=== PATIENT | male | born 1970 | race Caucasian/White ===

== ENCOUNTER 2023-01-05 20:38 | Inpatient (IN) | payer OTHER ==
[2023-01-05 20:42] VITALS: BMI 23.3
[2023-01-05] MEDS ORDERED: ACETAMINOPHEN 1000 MG/100 ML BAG IVPB ONE (22:36)
[2023-01-05] MEDS ORDERED: ACETAMINOPHEN INJECTION 100 ML IVPB ONE (22:48)
[2023-01-05 23:07] LABS: BASO % 0.6 % (0-2.0); EOS % 0.2 % (0-4.5); HEMATOCRIT 44.2 % (35.4-49); HEMOGLOBIN 15.1 GM/dL (11.7-16.9); LYMPH % 26.7 % (8-40); MCH 28.9 pg (25.7-33.7); MCHC 34.2 g/dl (32.0-35.9); MEAN CELL VOLUME 84.6 fl (80-96); MEAN PLT VOLUME 8.3 fl (7.5-11.1); MONO % 6.4 % (3.8-10.2); NEUT % 66.1 % (42.8-82.8); PLATELET COUNT 341 10^3/uL (134-434); RBC 5.22 M/mm3 (4.00-5.60); RDW 14.1 % (11.9-15.9); WHITE BLOOD COUNT 12.8 K/mm3 (4.0-10.0)
[2023-01-05 23:13] LABS: INR 1.23 (0.83-1.09); PROTHROMBIN TIME (PATIENT) 14.2 SEC (9.7-13.0)
[2023-01-05 23:16] LABS: ACTIVATED PTT 38.8 SECONDS (25.2-36.5)
[2023-01-05 23:35] LABS: POTASSIUM 4.8 mmol/L (3.5-5.1)
[2023-01-05 23:38] LABS: ALBUMIN 3.9 g/dl (3.4-5.0); CALCIUM 9.5 mg/dL (8.5-10.1)
[2023-01-05 23:41] LABS: CREATININE 1.3 mg/dL (0.55-1.3)
[2023-01-05 23:42] LABS: BILIRUBIN,TOTAL 0.7 mg/dL (0.2-1); TOT PROT 8.8 g/dl (6.4-8.2)
[2023-01-06 03:25] LABS: EPI CELLS 12 /uL (0-25.1); HYALINE CASTS 11 /uL (0-3.1); PH,URINE 5.5 (5.0-8.0); URINE APPEARANCE CLEAR; URINE BACTERIA 3 /uL (0-1359); URINE BILIRUBIN 2+ (NEGATIVE); URINE COLOR DK YELLOW; URINE GLUCOSE (UA) NEGATIVE (NEGATIVE); URINE KETONE 1+ (NEGATIVE); URINE LEUK ESTERASE NEGATIVE (NEGATIVE); URINE NITRITE NEGATIVE (NEGATIVE); URINE PROTEIN 1+ (NEGATIVE); URINE RBC 13 /uL (0-23.9); URINE WBC 20 /uL (0-25.8)
[2023-01-06 08:10] LABS: HEMATOCRIT 42.7 % (35.4-49); HEMOGLOBIN 14.2 GM/dL (11.7-16.9); MCH 28.9 pg (25.7-33.7); MCHC 33.2 g/dl (32.0-35.9); MEAN PLT VOLUME 8.1 fl (7.5-11.1); PLATELET COUNT 299 10^3/uL (134-434); RBC 4.91 M/mm3 (4.00-5.60); RDW 13.9 % (11.9-15.9); WHITE BLOOD COUNT 7.1 K/mm3 (4.0-10.0)
[2023-01-06 08:26] LABS: POTASSIUM 4.3 mmol/L (3.5-5.1)
[2023-01-06 08:28] LABS: CALCIUM 9.3 mg/dL (8.5-10.1)
[2023-01-06 08:29] LABS: ALBUMIN 3.7 g/dl (3.4-5.0); BLOOD UREA NITROGEN 25.6 mg/dL (7-18); MAGNESIUM 2.6 mg/dL (1.8-2.4)
[2023-01-06 08:32] LABS: PHOSPHOROUS 3.9 mg/dL (2.5-4.9)
[2023-01-06 08:33] LABS: BILIRUBIN,TOTAL 0.8 mg/dL (0.2-1)
[2023-01-06 08:34] LABS: TOT PROT 8.2 g/dl (6.4-8.2)
[2023-01-06] MEDS: ENOXAPARIN NA (PORCINE) 40 MG/0.4 ML DISP.SYRIN SQ SCH (09:05)
[2023-01-06] MEDS ORDERED: ATORVASTATIN CA 80 MG TABLET (FP) ONE (22:18)
[2023-01-06] MEDS: ATORVASTATIN CA 80 MG TABLET (FP) PO SCH ×2 (22:23→22:50)
[2023-01-07 08:49] LABS: BASO % 0.4 % (0-2.0); EOS % 0.9 % (0-4.5); HEMATOCRIT 46.3 % (35.4-49); HEMOGLOBIN 15.2 GM/dL (11.7-16.9); MCH 28.5 pg (25.7-33.7); MCHC 32.8 g/dl (32.0-35.9); MEAN CELL VOLUME 86.9 fl (80-96); MEAN PLT VOLUME 8.3 fl (7.5-11.1); MONO % 6.6 % (3.8-10.2); NEUT % 58.1 % (42.8-82.8); PLATELET COUNT 317 10^3/uL (134-434); RBC 5.33 M/mm3 (4.00-5.60); WHITE BLOOD COUNT 9.8 K/mm3 (4.0-10.0)
[2023-01-07 09:12] LABS: POTASSIUM 4.7 mmol/L (3.5-5.1)
[2023-01-07 09:15] LABS: ALBUMIN 3.8 g/dl (3.4-5.0); BLOOD UREA NITROGEN 31.7 mg/dL (7-18); CALCIUM 9.4 mg/dL (8.5-10.1)
[2023-01-07 09:20] LABS: BILIRUBIN,TOTAL 1.1 mg/dL (0.2-1); TOT PROT 8.7 g/dl (6.4-8.2)
[2023-01-07 09:21] LABS: CHOLESTEROL 198 mg/dL (50-200); LDL CHOLESTEROL (ONLY SJRH) 142 mg/dL (5-100)
[2023-01-07 09:23] LABS: HDL CHOLESTEROL 41 mg/dL (40-60)
[2023-01-07] MEDS: ENOXAPARIN NA (PORCINE) 40 MG/0.4 ML DISP.SYRIN SQ SCH (10:12)
[2023-01-07] MEDS: ASPIRIN COATED 81 MG TABLET.EC PO SCH (10:12)
[2023-01-07] MEDS ORDERED: FLU VACCINE (FLULAVAL) PF 60 MCG/0.5 ML SYRINGE 2023-2024 IM ONE (12:00)
[2023-01-07] MEDS: ATORVASTATIN CA 80 MG TABLET (FP) PO SCH (21:46)
[2023-01-08 08:16] LABS: CALCIUM 8.9 mg/dL (8.5-10.1)
[2023-01-08 08:17] LABS: ALBUMIN 3.5 g/dl (3.4-5.0); BLOOD UREA NITROGEN 34.9 mg/dL (7-18); MAGNESIUM 2.3 mg/dL (1.8-2.4)
[2023-01-08 08:20] LABS: PHOSPHOROUS 3.8 mg/dL (2.5-4.9)
[2023-01-08 08:21] LABS: TOT PROT 7.7 g/dl (6.4-8.2)
[2023-01-08 08:22] LABS: BILIRUBIN,TOTAL 0.9 mg/dL (0.2-1)
[2023-01-08 08:36] LABS: HEMATOCRIT 43.9 % (35.4-49); HEMOGLOBIN 14.2 GM/dL (11.7-16.9); MCH 28.4 pg (25.7-33.7); MCHC 32.5 g/dl (32.0-35.9); MEAN CELL VOLUME 87.5 fl (80-96); MEAN PLT VOLUME 8.8 fl (7.5-11.1); PLATELET COUNT 250 10^3/uL (134-434); RBC 5.01 M/mm3 (4.00-5.60); RDW 13.4 % (11.9-15.9); WHITE BLOOD COUNT 7.2 K/mm3 (4.0-10.0)
[2023-01-08] MEDS: ASPIRIN COATED 81 MG TABLET.EC PO SCH ×2 (10:20→10:26)
[2023-01-08] MEDS: ENOXAPARIN NA (PORCINE) 40 MG/0.4 ML DISP.SYRIN SQ SCH ×2 (10:20→10:27)
[2023-01-08] MEDS: ATORVASTATIN CA 80 MG TABLET (FP) PO SCH (21:40)
[2023-01-09] MEDS: ASPIRIN COATED 81 MG TABLET.EC PO SCH (09:57)
[2023-01-09] MEDS: ENOXAPARIN NA (PORCINE) 40 MG/0.4 ML DISP.SYRIN SQ SCH (09:57)
[2023-01-09] MEDS: ATORVASTATIN CA 80 MG TABLET (FP) PO SCH (21:40)
[2023-01-10] MEDS: ASPIRIN COATED 81 MG TABLET.EC PO SCH (10:14)
[2023-01-10] MEDS: ENOXAPARIN NA (PORCINE) 40 MG/0.4 ML DISP.SYRIN SQ SCH (10:14)
[2023-01-10] MEDS: ATORVASTATIN CA 80 MG TABLET (FP) PO SCH (21:03)
[2023-01-10] MEDS: THIAMINE HCL 200 MG/2 ML VIAL IVPB SCH (21:03)
[2023-01-11] MEDS: THIAMINE HCL 200 MG/2 ML VIAL IVPB SCH ×3 (04:09→22:02)
[2023-01-11 08:56] LABS: HEMATOCRIT 40.5 % (35.4-49); HEMOGLOBIN 13.2 GM/dL (11.7-16.9); MCH 28.2 pg (25.7-33.7); MCHC 32.5 g/dl (32.0-35.9); MEAN CELL VOLUME 86.6 fl (80-96); MEAN PLT VOLUME 8.4 fl (7.5-11.1); PLATELET COUNT 261 10^3/uL (134-434); RBC 4.68 M/mm3 (4.00-5.60); RDW 13.8 % (11.9-15.9); WHITE BLOOD COUNT 7.8 K/mm3 (4.0-10.0)
[2023-01-11] MEDS: ENOXAPARIN NA (PORCINE) 40 MG/0.4 ML DISP.SYRIN SQ SCH (09:08)
[2023-01-11] MEDS: ASPIRIN COATED 81 MG TABLET.EC PO SCH (09:08)
[2023-01-11 09:17] LABS: POTASSIUM 4.5 mmol/L (3.5-5.1)
[2023-01-11 09:21] LABS: ALBUMIN 3.3 g/dl (3.4-5.0); BLOOD UREA NITROGEN 21.2 mg/dL (7-18); MAGNESIUM 2.3 mg/dL (1.8-2.4)
[2023-01-11 09:24] LABS: CREATININE 0.9 mg/dL (0.55-1.3); PHOSPHOROUS 3.4 mg/dL (2.5-4.9)
[2023-01-11 09:25] LABS: BILIRUBIN,TOTAL 0.5 mg/dL (0.2-1); TOT PROT 7.4 g/dl (6.4-8.2)
[2023-01-11] MEDS: ATORVASTATIN CA 80 MG TABLET (FP) PO SCH (22:02)
[2023-01-12] MEDS: THIAMINE HCL 200 MG/2 ML VIAL IVPB SCH ×3 (04:30→19:44)
[2023-01-12 08:31] LABS: HEMATOCRIT 38.6 % (35.4-49); MCH 28.7 pg (25.7-33.7); MCHC 33.6 g/dl (32.0-35.9); MEAN CELL VOLUME 85.6 fl (80-96); MEAN PLT VOLUME 8.3 fl (7.5-11.1); PLATELET COUNT 260 10^3/uL (134-434); RBC 4.51 M/mm3 (4.00-5.60); RDW 13.9 % (11.9-15.9); WHITE BLOOD COUNT 8.2 K/mm3 (4.0-10.0)
[2023-01-12 08:46] LABS: CALCIUM 8.6 mg/dL (8.5-10.1)
[2023-01-12 08:47] LABS: ALBUMIN 3.3 g/dl (3.4-5.0); BLOOD UREA NITROGEN 15.8 mg/dL (7-18); MAGNESIUM 2.4 mg/dL (1.8-2.4)
[2023-01-12 08:50] LABS: CREATININE 0.9 mg/dL (0.55-1.3)
[2023-01-12 08:51] LABS: BILIRUBIN,TOTAL 0.6 mg/dL (0.2-1)
[2023-01-12 08:52] LABS: TOT PROT 7.4 g/dl (6.4-8.2)
[2023-01-12] MEDS: ENOXAPARIN NA (PORCINE) 40 MG/0.4 ML DISP.SYRIN SQ SCH (10:00)
[2023-01-12] MEDS: ASPIRIN COATED 81 MG TABLET.EC PO SCH (10:00)
[2023-01-12] MEDS: ATORVASTATIN CA 80 MG TABLET (FP) PO SCH (21:00)
[2023-01-13] MEDS: ASPIRIN COATED 81 MG TABLET.EC PO SCH (09:15)
[2023-01-13 09:27] LABS: HEMATOCRIT 40.2 % (35.4-49); HEMOGLOBIN 14.1 GM/dL (11.7-16.9); MCH 29.4 pg (25.7-33.7); MCHC 35.1 g/dl (32.0-35.9); MEAN CELL VOLUME 83.8 fl (80-96); MEAN PLT VOLUME 8.5 fl (7.5-11.1); PLATELET COUNT 270 10^3/uL (134-434); WHITE BLOOD COUNT 9.1 K/mm3 (4.0-10.0)
[2023-01-13 10:40] LABS: CALCIUM 9.1 mg/dL (8.5-10.1)
[2023-01-13 10:41] LABS: ALBUMIN 3.4 g/dl (3.4-5.0); BLOOD UREA NITROGEN 15.9 mg/dL (7-18)
[2023-01-13 10:44] LABS: CREATININE 0.8 mg/dL (0.55-1.3)
[2023-01-13 10:45] LABS: BILIRUBIN,TOTAL 0.8 mg/dL (0.2-1); TOT PROT 7.8 g/dl (6.4-8.2)
[2023-01-13] MEDS: ENOXAPARIN NA (PORCINE) 40 MG/0.4 ML DISP.SYRIN SQ SCH (10:58)
[2023-01-13 12:27] LABS: POTASSIUM 4.4 mmol/L (3.5-5.1)
[2023-01-13] MEDS: ATORVASTATIN CA 80 MG TABLET (FP) PO SCH (21:28)
[2023-01-14 08:17] LABS: HEMOGLOBIN 13.7 GM/dL (11.7-16.9); MCH 28.6 pg (25.7-33.7); MCHC 33.4 g/dl (32.0-35.9); MEAN CELL VOLUME 85.5 fl (80-96); MEAN PLT VOLUME 8.7 fl (7.5-11.1); PLATELET COUNT 289 10^3/uL (134-434); RDW 13.4 % (11.9-15.9); WHITE BLOOD COUNT 10.9 K/mm3 (4.0-10.0)
[2023-01-14 08:36] LABS: POTASSIUM 4.3 mmol/L (3.5-5.1)
[2023-01-14 08:43] LABS: CALCIUM 8.6 mg/dL (8.5-10.1)
[2023-01-14 08:44] LABS: ALBUMIN 3.4 g/dl (3.4-5.0); BLOOD UREA NITROGEN 18.1 mg/dL (7-18)
[2023-01-14 08:47] LABS: BILIRUBIN,TOTAL 0.8 mg/dL (0.2-1); CREATININE 0.8 mg/dL (0.55-1.3); TOT PROT 7.8 g/dl (6.4-8.2)
[2023-01-14] MEDS: ASPIRIN COATED 81 MG TABLET.EC PO SCH ×2 (09:07→09:28)
[2023-01-14] MEDS: ENOXAPARIN NA (PORCINE) 40 MG/0.4 ML DISP.SYRIN SQ SCH ×2 (09:07→09:28)
[2023-01-14 20:51] VITALS: BP 116/79; PULSE 93; RESP 16; TEMP 97.9
[2023-01-14] MEDS: ATORVASTATIN CA 80 MG TABLET (FP) PO SCH (21:02)
== END 2023-01-15 01:55 | DRG 57 ==
LOC: JER 20:38 → JERBED 01-06 02:26 → J4S 01-07 00:46 → OBSVTOIN 01-07 16:13
PROVIDERS: ADMIT Internal Medicine; ATTEND Internal Medicine
DX: G31.2 Degeneration of nervous system due to alcohol (principal); E51.2 Wernicke's encephalopathy; G40.909 Epilepsy, unspecified, not intractable, without status epilepticus; I25.2 Old myocardial infarction; F10.20 Alcohol dependence, uncomplicated; R55 Syncope and collapse; R07.89 Other chest pain; R53.1 Weakness; I69.322 Dysarthria following cerebral infarction; H05.20 Unspecified exophthalmos; E78.5 Hyperlipidemia, unspecified; S00.01XA Abrasion of scalp, initial encounter; R25.3 Fasciculation; H54.40 Blindness, one eye, unspecified eye; R44.9 Unspecified symptoms and signs involving general sensations and perceptions; M62.58 Muscle wasting and atrophy, not elsewhere classified, other site; I25.10 Atherosclerotic heart disease of native coronary artery without angina pectoris; Z95.5 Presence of coronary angioplasty implant and graft; W18.30XA Fall on same level, unspecified, initial encounter; Y92.098 Other place in other non-institutional residence as the place of occurrence of the external cause
CPT/HCPCS: 36415; 70450-TC; 70551-TC; 71045-TC-FY; 72125-TC; 72128-TC; 72131-TC; 72148-TC; 72170-TC-FY; 80053; 80061; 80307; 81003; 82550; 82553; 82607; 82746; 83735; 84100; 84439; 84443; 84484; 85025; 85027; 85610; 85730; 87086; 87635; 90686; 93005; 93010; 97116-GP; 97161-GP; 99285-25; G0008; G0378

== ENCOUNTER 2023-02-10 16:32 | Observation (INO) | payer OTHER ==
[2023-02-10 18:42] LABS: POTASSIUM 4.2 mmol/L (3.5-5.1)
[2023-02-10 18:44] LABS: CALCIUM 8.5 mg/dL (8.5-10.1)
[2023-02-10 18:45] LABS: ALBUMIN 2.8 g/dl (3.4-5.0); BLOOD UREA NITROGEN 16.2 mg/dL (7-18); MAGNESIUM 2.5 mg/dL (1.8-2.4)
[2023-02-10 18:48] LABS: CREATININE 0.8 mg/dL (0.55-1.3)
[2023-02-10 18:49] LABS: BILIRUBIN,TOTAL 0.4 mg/dL (0.2-1); TOT PROT 8.1 g/dl (6.4-8.2)
[2023-02-10 18:54] LABS: INR 1.22 (0.83-1.09); PROTHROMBIN TIME (PATIENT) 14.1 SEC (9.7-13.0)
[2023-02-10 18:56] LABS: BASO % 0.2 % (0-2.0); HEMATOCRIT 32.6 % (35.4-49); HEMOGLOBIN 10.8 GM/dL (11.7-16.9); LYMPH % 29.6 % (8-40); MCH 28.1 pg (25.7-33.7); MCHC 33.3 g/dl (32.0-35.9); MEAN CELL VOLUME 84.5 fl (80-96); MEAN PLT VOLUME 7.3 fl (7.5-11.1); MONO % 9.5 % (3.8-10.2); NEUT % 59.7 % (42.8-82.8); PLATELET COUNT 399 10^3/uL (134-434); RBC 3.86 M/mm3 (4.00-5.60); WHITE BLOOD COUNT 10.6 K/mm3 (4.0-10.0)
[2023-02-10 18:57] LABS: ACTIVATED PTT 41.4 SECONDS (25.2-36.5)
[2023-02-10] MEDS ORDERED: SODIUM CHLORIDE 0.9% 500 ML INFUS.BAG IV ONE (22:42)
[2023-02-10] MEDS ORDERED: ASPIRIN 81 MG CHEWABLE TABLETS PO ONE (22:49)
[2023-02-10] MEDS ORDERED: ACETAMINOPHEN 1000 MG/100 ML BAG IVPB ONE (22:49)
[2023-02-10] MEDS ORDERED: ASPIRIN 81 MG CHEWABLE TABLETS ONE (22:51)
[2023-02-10] MEDS ORDERED: ACETAMINOPHEN INJECTION 100 ML IVPB ONE (22:52)
[2023-02-11] MEDS ORDERED: DIVALPROEX NA *ER* EXTEND REL 250 MG TABLET.SA ONE (01:46)
[2023-02-11] MEDS: DIVALPROEX SODIUM 250 MG TABLET E.C. PO SCH ×3 (01:52→22:28)
[2023-02-11] MEDS: SODIUM CHLORIDE 1,000 ML IV SCH (02:55)
[2023-02-11 05:29] LABS: BILIRUBIN,DIRECT 0.2 mg/dL (0.0-0.2)
[2023-02-11] MEDS ORDERED: THIAMINE HCL 200 MG/2 ML VIAL ONE ×3 (06:14→22:06)
[2023-02-11] MEDS ORDERED: MAG HYDROX/AL HYDROX/SIMETH 30 ML UNIT-DOSE CUP ONE ×3 (06:14→22:07)
[2023-02-11] MEDS: MAG HYDROX/AL HYDROX/SIMETH 30 ML UNIT-DOSE CUP PO SCH ×4 (06:48→22:28)
[2023-02-11] MEDS: THIAMINE HCL 200 MG/2 ML VIAL IVPB SCH ×4 (06:48→22:28)
[2023-02-11 08:13] LABS: HEMOGLOBIN 10.6 GM/dL (11.7-16.9); MCH 27.9 pg (25.7-33.7); MCHC 32.2 g/dl (32.0-35.9); MEAN CELL VOLUME 86.6 fl (80-96); PLATELET COUNT 356 10^3/uL (134-434); RBC 3.81 M/mm3 (4.00-5.60); RDW 14.2 % (11.9-15.9); WHITE BLOOD COUNT 7.5 K/mm3 (4.0-10.0)
[2023-02-11 08:42] LABS: POTASSIUM 4.5 mmol/L (3.5-5.1)
[2023-02-11 08:44] LABS: CALCIUM 8.3 mg/dL (8.5-10.1)
[2023-02-11 08:45] LABS: BLOOD UREA NITROGEN 14.1 mg/dL (7-18)
[2023-02-11 08:48] LABS: CREATININE 0.7 mg/dL (0.55-1.3)
[2023-02-11 08:51] LABS: MAGNESIUM 2.4 mg/dL (1.8-2.4)
[2023-02-11] MEDS ORDERED: ENOXAPARIN NA (PORCINE) 40 MG/0.4 ML DISP.SYRIN SQ SCH (10:00)
[2023-02-11] MEDS ORDERED: THIAMINE HCL 100 MG TABLET (FP) PO SCH (10:00)
[2023-02-11] MEDS ORDERED: ASPIRIN COATED 81 MG TABLET.EC ONE (11:24)
[2023-02-11] MEDS ORDERED: LIDOCAINE 4% PATCH TP ONE (11:25)
[2023-02-11] MEDS ORDERED: FOLIC ACID 1 MG TABLET (FP) ONE (11:25)
[2023-02-11] MEDS ORDERED: DIVALPROEX SODIUM 250 MG TABLET E.C. ONE ×2 (11:25→22:06)
[2023-02-11] MEDS: ASPIRIN COATED 81 MG TABLET.EC PO SCH (11:28)
[2023-02-11] MEDS: LIDOCAINE 4% PATCH TP SCH (11:28)
[2023-02-11] MEDS: FOLIC ACID 1 MG TABLET (FP) PO SCH (11:28)
[2023-02-11] MEDS ORDERED: ATORVASTATIN CA 80 MG TABLET (FP) ONE (22:06)
[2023-02-11] MEDS: ATORVASTATIN CA 80 MG TABLET (FP) PO SCH (22:28)
[2023-02-11] MEDS: LIDOCAINE PATCH REMOVAL MC SCH (22:29)
[2023-02-12 01:08] LABS: URINE APPEARANCE CLEAR; URINE BILIRUBIN NEGATIVE (NEGATIVE); URINE COLOR YELLOW; URINE GLUCOSE (UA) NEGATIVE (NEGATIVE); URINE KETONE 1+ (NEGATIVE); URINE LEUK ESTERASE NEGATIVE (NEGATIVE); URINE NITRITE NEGATIVE (NEGATIVE); URINE PROTEIN NEGATIVE (NEGATIVE)
[2023-02-12] MEDS: SODIUM CHLORIDE 1,000 ML IV SCH (02:58)
[2023-02-12] MEDS: MAG HYDROX/AL HYDROX/SIMETH 30 ML UNIT-DOSE CUP PO SCH ×3 (05:45→21:58)
[2023-02-12] MEDS: THIAMINE HCL 200 MG/2 ML VIAL IVPB SCH ×3 (05:46→21:58)
[2023-02-12] MEDS: FOLIC ACID 1 MG TABLET (FP) PO SCH (09:34)
[2023-02-12] MEDS: LIDOCAINE 4% PATCH TP SCH (09:34)
[2023-02-12] MEDS: ASPIRIN COATED 81 MG TABLET.EC PO SCH (09:34)
[2023-02-12] MEDS: DIVALPROEX SODIUM 250 MG TABLET E.C. PO SCH ×2 (09:34→21:57)
[2023-02-12] MEDS: FAMOTIDINE 20 MG TABLET PO SCH (16:14)
[2023-02-12] MEDS: ENOXAPARIN NA (PORCINE) 40 MG/0.4 ML DISP.SYRIN SQ SCH (16:14)
[2023-02-12] MEDS: ATORVASTATIN CA 80 MG TABLET (FP) PO SCH (21:57)
[2023-02-12] MEDS: LIDOCAINE PATCH REMOVAL MC SCH (21:58)
[2023-02-13] MEDS: MAG HYDROX/AL HYDROX/SIMETH 30 ML UNIT-DOSE CUP PO SCH ×3 (06:10→21:11)
[2023-02-13 08:22] LABS: TOTAL IRON BINDING CAPACITY 220 ug/dL (250-450)
[2023-02-13 08:23] LABS: IRON SERUM 43 ug/dL (50-175)
[2023-02-13] MEDS: ASPIRIN COATED 81 MG TABLET.EC PO SCH (09:33)
[2023-02-13] MEDS: LIDOCAINE 4% PATCH TP SCH (09:33)
[2023-02-13] MEDS: FAMOTIDINE 20 MG TABLET PO SCH (09:33)
[2023-02-13] MEDS: FOLIC ACID 1 MG TABLET (FP) PO SCH (09:33)
[2023-02-13] MEDS: DIVALPROEX SODIUM 250 MG TABLET E.C. PO SCH ×2 (09:33→21:10)
[2023-02-13] MEDS: ENOXAPARIN NA (PORCINE) 40 MG/0.4 ML DISP.SYRIN SQ SCH (09:33)
[2023-02-13] MEDS: THIAMINE HCL 200 MG/2 ML VIAL IVPB SCH (09:34)
[2023-02-13 18:08] VITALS: BMI 23.4
[2023-02-13] MEDS: LIDOCAINE PATCH REMOVAL MC SCH (21:10)
[2023-02-13] MEDS: ATORVASTATIN CA 80 MG TABLET (FP) PO SCH (21:11)
[2023-02-14] MEDS: MAG HYDROX/AL HYDROX/SIMETH 30 ML UNIT-DOSE CUP PO SCH ×2 (05:55→13:06)
[2023-02-14] MEDS ORDERED: MULTIVITAMINS (DAILY MVI) TABLET (FP) PO SCH (10:00)
[2023-02-14] MEDS: ENOXAPARIN NA (PORCINE) 40 MG/0.4 ML DISP.SYRIN SQ SCH (10:00)
[2023-02-14] MEDS: THIAMINE HCL 200 MG/2 ML VIAL IVPB SCH (10:01)
[2023-02-14] MEDS: FOLIC ACID 1 MG TABLET (FP) PO SCH (10:01)
[2023-02-14] MEDS: DIVALPROEX SODIUM 250 MG TABLET E.C. PO SCH (10:01)
[2023-02-14] MEDS: ASPIRIN COATED 81 MG TABLET.EC PO SCH (10:01)
[2023-02-14] MEDS: FAMOTIDINE 20 MG TABLET PO SCH (10:01)
[2023-02-14] MEDS: LIDOCAINE 4% PATCH TP SCH (10:02)
[2023-02-14 10:59] VITALS: TEMP 97.7
[2023-02-14] MEDS ORDERED: BISACODYL 10 MG SUPP.RECT PR ONE (12:55)
[2023-02-14 14:54] VITALS: BP 112/75; PULSE 91; RESP 17
== END 2023-02-14 15:58 ==
LOC: JER 16:32 → JERBED 19:59 → J4S 02-12 04:12
PROVIDERS: ADMIT Internal Medicine; ATTEND Internal Medicine
PROC: 3E023GC Introduction of Other Therapeutic Substance into Muscle, Percutaneous Approach (ICD-10-PCS; principal; 2023-02-10)
PROC: 3E0337Z Introduction of Electrolytic and Water Balance Substance into Peripheral Vein, Percutaneous Approach (ICD-10-PCS; 2023-02-10)
DX: I25.10 Atherosclerotic heart disease of native coronary artery without angina pectoris (principal); I11.9 Hypertensive heart disease without heart failure; Z86.73 Personal history of transient ischemic attack (TIA), and cerebral infarction without residual deficits; I25.2 Old myocardial infarction; F10.99 Alcohol use, unspecified with unspecified alcohol-induced disorder; E46 Unspecified protein-calorie malnutrition; D64.9 Anemia, unspecified; F31.9 Bipolar disorder, unspecified; Z29.89 Encounter for other specified prophylactic measures; M79.18 Myalgia, other site; R26.2 Difficulty in walking, not elsewhere classified; I95.9 Hypotension, unspecified; E86.1 Hypovolemia
CPT/HCPCS: 0241U-QW; 36415; 71045-TC-FY; 71275-TC; 80048; 80053; 81003; 82248; 82728; 82962; 83540; 83550; 83735; 84100; 84484; 85025; 85027; 85379; 85610; 85730; 87086; 93005; 93010; 96361; 96372; 96374; 96375; 96376; 99285-25; G0378

== ENCOUNTER 2024-03-16 11:32 | Observation (INO) | payer OTHER ==
[2024-03-16] MEDS ORDERED: ACETAMINOPHEN INJECTION 100 ML ONE (12:30)
[2024-03-16] MEDS: ACETAMINOPHEN 1000 MG/100 ML BAG IVPB ONE (12:32)
[2024-03-16 12:35] LABS: BASO % 0.8 % (0-2.0); EOS % 0.3 % (0-4.5); HEMOGLOBIN 14.5 GM/dL (11.7-16.9); LYMPH % 23.2 % (8-40); MCH 28.2 pg (25.7-33.7); MCHC 33.1 g/dl (32.0-35.9); MEAN CELL VOLUME 85.2 fl (80-96); MEAN PLT VOLUME 7.5 fl (7.5-11.1); MONO % 5.9 % (3.8-10.2); NEUT % 69.8 % (42.8-82.8); PLATELET COUNT 349 10^3/uL (134-434); RBC 5.16 M/mm3 (4.00-5.60); RDW 13.8 % (11.9-15.9)
[2024-03-16 12:43] LABS: INR 1.13 (0.83-1.09); PROTHROMBIN TIME (PATIENT) 12.7 SEC (9.7-13.0)
[2024-03-16 12:45] LABS: ACTIVATED PTT 39.3 SECONDS (25.2-36.5)
[2024-03-16 12:58] LABS: POTASSIUM 3.6 mmol/L (3.5-5.1)
[2024-03-16 13:01] LABS: ALBUMIN 3.6 g/dl (3.4-5.0); BLOOD UREA NITROGEN 22.9 mg/dL (7-18); CALCIUM 8.8 mg/dL (8.5-10.1); MAGNESIUM 2.2 mg/dL (1.8-2.4)
[2024-03-16 13:06] LABS: BILIRUBIN,TOTAL 0.6 mg/dL (0.2-1); TOT PROT 8.2 g/dl (6.4-8.2)
[2024-03-16 19:47] VITALS: BMI 21.9
[2024-03-17 09:21] LABS: HEMATOCRIT 42.4 % (35.4-49); HEMOGLOBIN 14.5 GM/dL (11.7-16.9); MCH 28.6 pg (25.7-33.7); MCHC 34.1 g/dl (32.0-35.9); MEAN CELL VOLUME 83.8 fl (80-96); MEAN PLT VOLUME 7.8 fl (7.5-11.1); PLATELET COUNT 316 10^3/uL (134-434); RBC 5.06 M/mm3 (4.00-5.60); RDW 13.8 % (11.9-15.9); WHITE BLOOD COUNT 6.7 K/mm3 (4.0-10.0)
[2024-03-17 09:51] LABS: CHOLESTEROL 147 mg/dL (50-200)
[2024-03-17 09:53] LABS: HDL CHOLESTEROL 36 mg/dL (40-60); LDL CHOLESTEROL (ONLY SJRH) 95 mg/dL (5-100)
[2024-03-17 09:55] LABS: POTASSIUM 3.9 mmol/L (3.5-5.1)
[2024-03-17 10:00] LABS: ALBUMIN 3.6 g/dl (3.4-5.0)
[2024-03-17 10:02] LABS: BLOOD UREA NITROGEN 19.7 mg/dL (7-18)
[2024-03-17 10:03] LABS: CALCIUM 9.2 mg/dL (8.5-10.1); CREATININE 0.9 mg/dL (0.55-1.3)
[2024-03-17 10:04] LABS: MAGNESIUM 2.5 mg/dL (1.8-2.4); PHOSPHOROUS 3.6 mg/dL (2.5-4.9)
[2024-03-17 10:05] LABS: BILIRUBIN,TOTAL 0.8 mg/dL (0.2-1)
[2024-03-17] MEDS: ENOXAPARIN NA (PORCINE) 40 MG/0.4 ML DISP.SYRIN SQ SCH (10:17)
[2024-03-18] MEDS: FOLIC ACID 1 MG TABLET (FP) PO SCH (11:22)
[2024-03-18] MEDS: THIAMINE HCL 200 MG/2 ML VIAL IVPB SCH (11:43)
[2024-03-18] MEDS: THIAMINE 100 MG TABLET PO SCH (12:06)
[2024-03-20 09:33] LABS: BASO % 0.6 % (0-2.0); EOS % 1.8 % (0-4.5); HEMATOCRIT 40.8 % (35.4-49); HEMOGLOBIN 13.7 GM/dL (11.7-16.9); LYMPH % 29.7 % (8-40); MCH 28.3 pg (25.7-33.7); MCHC 33.5 g/dl (32.0-35.9); MEAN CELL VOLUME 84.4 fl (80-96); MEAN PLT VOLUME 8.2 fl (7.5-11.1); MONO % 5.1 % (3.8-10.2); NEUT % 62.8 % (42.8-82.8); PLATELET COUNT 285 10^3/uL (134-434); RBC 4.83 M/mm3 (4.00-5.60); RDW 13.9 % (11.9-15.9); WHITE BLOOD COUNT 6.4 K/mm3 (4.0-10.0)
[2024-03-20 09:49] LABS: POTASSIUM 3.4 mmol/L (3.5-5.1)
[2024-03-20 09:59] LABS: ALBUMIN 3.3 g/dl (3.4-5.0)
[2024-03-20 10:00] LABS: BILIRUBIN,TOTAL 0.4 mg/dL (0.2-1); BLOOD UREA NITROGEN 28.8 mg/dL (7-18); TOT PROT 7.3 g/dl (6.4-8.2)
[2024-03-20 10:02] LABS: CALCIUM 8.6 mg/dL (8.5-10.1)
[2024-03-20] MEDS: POTASSIUM CHLORIDE ORAL LIQUID 20 MEQ/15 ML PO ONE (18:34)
[2024-03-20] MEDS: SENNOSIDES 8.6MG TABLET (FP) PO PRN (21:25)
[2024-03-21] MEDS ORDERED: LORazepam 0.5 MG TABLET PO PRN (07:30)
[2024-03-21 08:33] LABS: BASO % 0.6 % (0-2.0); EOS % 1.6 % (0-4.5); HEMATOCRIT 38.9 % (35.4-49); HEMOGLOBIN 13.5 GM/dL (11.7-16.9); LYMPH % 28.1 % (8-40); MCH 29.1 pg (25.7-33.7); MCHC 34.6 g/dl (32.0-35.9); MEAN CELL VOLUME 83.9 fl (80-96); MONO % 8.4 % (3.8-10.2); NEUT % 61.3 % (42.8-82.8); PLATELET COUNT 259 10^3/uL (134-434); RBC 4.63 M/mm3 (4.00-5.60); RDW 14.3 % (11.9-15.9); WHITE BLOOD COUNT 7.8 K/mm3 (4.0-10.0)
[2024-03-21 08:44] LABS: POTASSIUM 3.9 mmol/L (3.5-5.1)
[2024-03-21 08:56] LABS: CREATININE 0.8 mg/dL (0.55-1.3)
[2024-03-21 08:57] LABS: ALBUMIN 3.2 g/dl (3.4-5.0); BLOOD UREA NITROGEN 22.1 mg/dL (7-18)
[2024-03-21 08:58] LABS: BILIRUBIN,TOTAL 0.5 mg/dL (0.2-1)
[2024-03-21 08:59] LABS: CALCIUM 8.3 mg/dL (8.5-10.1)
[2024-03-21 09:00] LABS: MAGNESIUM 2.1 mg/dL (1.8-2.4)
[2024-03-21] MEDS: BACITRACIN ZINC 15 GM TUBE TOPICAL OINTMENT TP SCH (11:30)
[2024-03-21] MEDS: THIAMINE 100 MG TABLET PO SCH (11:32)
[2024-03-22] MEDS ORDERED: DEXTROSE 5%-NORMAL SALINE 1,000 ML IV SCH (12:45)
[2024-03-22] MEDS: MULTIVITAMINS (DAILY MVI) TABLET (FP) PO SCH (13:39)
[2024-03-22 15:10] VITALS: RESP 18
[2024-03-22] MEDS: MIRTAZAPINE 15 MG TABLET (FP) PO SCH (21:25)
[2024-03-23 15:37] VITALS: BP 103/71; PULSE 102; TEMP 97.9
== END 2024-03-23 17:15 ==
LOC: JER 11:32 → JERBED 15:49 → J8W 17:51
PROVIDERS: ADMIT Student in an Organized Health Care Education/Training Program; ATTEND Nurse Practitioner Family
PROC: 3E033NZ Introduction of Analgesics, Hypnotics, Sedatives into Peripheral Vein, Percutaneous Approach (ICD-10-PCS; principal; 2024-03-16)
PROC: 3E013GC Introduction of Other Therapeutic Substance into Subcutaneous Tissue, Percutaneous Approach (ICD-10-PCS; 2024-03-16)
DX: R07.89 Other chest pain (principal); Z74.1 Need for assistance with personal care; G11.0 Congenital nonprogressive ataxia; R55 Syncope and collapse; E11.9 Type 2 diabetes mellitus without complications; I10 Essential (primary) hypertension; I25.10 Atherosclerotic heart disease of native coronary artery without angina pectoris; I25.2 Old myocardial infarction; F31.9 Bipolar disorder, unspecified; E78.5 Hyperlipidemia, unspecified; I69.354 Hemiplegia and hemiparesis following cerebral infarction affecting left non-dominant side; G32.81 Cerebellar ataxia in diseases classified elsewhere; E86.1 Hypovolemia; F39 Unspecified mood [affective] disorder; R29.6 Repeated falls; F10.10 Alcohol abuse, uncomplicated; Z99.3 Dependence on wheelchair
CPT/HCPCS: 36415; 71045-TC-FY; 74177-TC; 80053; 80061; 82272; 83036; 83735; 84100; 84484; 85025; 85027; 85610; 85730; 86850; 86900; 86901; 93005; 93010; 96372; 96374; 97116-GP; 97161-GP; 99285-25; G0378; J0131; Q9967